=== PATIENT | male | born 1980 | race Caucasian/White ===

== ENCOUNTER → 2021-06-20 07:38 | Outpatient (CLI) | payer OTHER, SELFPAY ==
[2021-06-20 08:23] LABS: Basophils % 0.6 % (0.1-2.0); Eosinophils % 1.1 % (0.1-12.0); Hematocrit 45.3 % (42.0-52.0); Hemoglobin 14.8 g/dL (14.1-18.0); Lymphocytes # 1.2 K/mm3 (0.7-4.5); Lymphocytes % 29.3 % (10-50); Mean Corpuscular HGB Conc 32.8 g/dL (31.8-35.4); Mean Corpuscular Hemoglobin 29.6 pg (27.0-31.2); Mean Corpuscular Volume 90.4 fl (80-94); Mean Platelet Volume 8.5 fl (7.4-10.4); Monocytes # 0.3 K/mm3 (0.1-1.0); Neutrophils # 2.5 K/mm3 (1.8-7.8); Neutrophils % 62.1 % (37.0-80.0); Platelet Count 281 K/mm3 (142-424); Red Blood Count 5.01 M/mm3 (4.60-6.20); Red Cell Distribution Width 14.2 % (11.5-17.5); White Blood Count 4.1 K/mm3 (4.8-10.8)
[2021-06-20 10:53] LABS: Chloride 105 mmol/L (98-107); Potassium 4.4 mmoL/L (3.5-5.1); Sodium 138 mmol/L (136-145)
[2021-06-20 10:55] LABS: Blood Urea Nitrogen 12 mg/dl (9-20); Estimated Glomerular Filt Rate 107 ml/min (>60); GFR (African American) 129 ML/MIN (>60)
[2021-06-20 10:56] LABS: Alanine Aminotransferase 28 U/L (12-78); Albumin Level 4.1 g/dl (3.5-5.0); Albumin/Globulin Ratio 1.9 (1.1-1.8); Alkaline Phosphatase 62 U/L (38-126); Anion Gap 7.4 mEq/L (5-15); Aspartate Amino Transferase 31 U/L (17-59); Bilirubin,Total 0.8 mg/dl (0.2-1.3); Calcium 8.2 mg/dl (8.4-10.2); Carbon Dioxide 30 mmol/L (22.0-30.0); Globulin 2.2 g/dL (1.3-3.2); Glucose 81 mg/dl (74-100); Total Protein,Serum 6.3 g/dl (6.3-8.2)
[2021-06-20 11:27] LABS: Thyroid Stimulating Hormone 1.01 uIU/mL (0.465-4.68)
[2021-06-20 11:44] LABS: Vitamin B12 243 pg/mL (239-931)
== END ==
PROVIDERS: Visit Provider Specialist
DX: G47.10 Hypersomnia, unspecified (principal)
CPT/HCPCS: 36415; 80053; 82607; 82746; 84443; 85025